=== PATIENT | female | born 1955 | race Caucasian/White ===

== ENCOUNTER 2019-12-01 08:39 | Emergency (ER) | payer MEDICARE, OTHER, BC, SELFPAY ==
[2019-12-01] VITALS (7 sets, daily range): BP systolic 134–149; BP diastolic 81–86; PULSE 82–102; RESP 18–20; TEMP 36.6; O2SAT 98–99
--- NOTE | 2019-12-01 08:45 | RT.EKG_ITS ---
APPROVED REPORT Exam: Resting ECG Patient Location: E HR:92 bpm ECG Measurements Heart Rate 92 AXIS VT 138 P 68 QRSd 84 QRS 35 QT 358 T 49 QTc 445 <Conclusion> Sinus rhythmrate 92, qrs narrow, no st elev
--- NOTE | 2019-12-01 09:00 | DI.CT_ITS ---
EXAM: CT BRAIN NECK CTA CLINICAL HISTORY: vertigo, vomiting. TECHNIQUE: Imaging Protocol: Axial CT angiography was performed with multi-slice acquisition and mu lti-planar and/or 3D reconstructions. CONTRAST MATERIAL: Intravenous: Omnipaque 350 Contrast volume:structured data in ml COMPARISON: No exams were available for comparison FINDINGS: CT angiography of the cervical cranial region was performed according to the usual protocol. Visualiz ed lung apices are clear. Visualized portions of thoracic aorta and pulmonary arterial circulation ar e unremarkable. There is no evidence of a cervical mass or adenopathy. The tracheal laryngeal structu res appear intact. The common, internal, and external carotid arteries are within normal limits in the cervical region w ith no evidence of aneurysm, stenosis, or dissection. The vertebral arteries are unremarkable in appearance in the cervical region with no evidence of aneu rysm, stenosis, or dissection. There is possible 3-4 millimeter in diameter medially directed aneurysm of the suprasellar portion th e right internal carotid artery. This is not ideally visualized. No other abnormality of the intrac ranial internal carotid arteries is seen.. Intracranial vertebral arteries and basilar artery appear normal with no evidence of aneurysm, stenos is or dissection. No aneurysm identified in the region of the [id number]. The anterior, middle, and posterior cer ebral arteries and major branches appear intact with no evidence of aneurysm, stenosis, or dissection . No enhancing brain lesion identified. 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 No other significant findings. Additional evaluation with catheter angiography s uggested. RADIATION DOSE DELIVERED: 1,158.16mGy.cmTotal DLP DATA REPOSITORY: All CT scans at this facility are submitted to the National Radiology Data Registry (NRDR) Dose Index Registry (DIR) with the [employer] (A[employer]). RADIATION OPTIMIZATION: All CT scans at this facility use at least one of these dose optimization te chniques: automated exposure control; mA and/or kV adjustment per patient size (includes targeted exa ms where dose is matched to clinical indication); or iterative reconstruction.
[2019-12-01] MEDS: Meclizine 25 MG TAB PO (09:14)
[2019-12-01] MEDS: Ondansetron 4 MG/2 ML VIAL IVP (09:15)
[2019-12-01] MEDS: Normal Saline Flush 10 ML SYR IVP ×2 (09:15→10:12)
[2019-12-01] MEDS: Normal Saline 1,000 ML 1000 ML IV (09:15)
[2019-12-01 09:18] LABS: Abs Immature Grans 0.06 10^3/uL (0.0-0.06); Absolute Basophil Count 0.02 10^3/uL (0.0-0.2); Absolute Lymphocyte Count 1.08 10^3/uL (1.2-3.4); Absolute Monocyte Count 0.51 10^3/uL (0.1-0.8); Absolute Neutrophil Count 8.81 10^3/uL (1.2-6.7); Basophils % 0.2; HCT 45.1 % (36.0-46.0); HGB 15.1 g/dL (11.2-15.7); Immature Grans % 0.6; Lymphocytes % 10.3; MCH 28.4 pg (27.0-33.0); MCHC 33.5 % (32.0-36.0); MCV 84.9 fL (80-95); MPV 9.1 fL (8.0-11.0); Monocytes % 4.9; Platelet Count 271 10^3/uL (130-400); RBC 5.31 10^6/uL (3.93-5.22); RDW 13.2 % (11.7-14.6); RDW-SD 40.8 fL; WBC 10.48 10^3/uL (4.4-10.8)
[2019-12-01] MEDS: Acetaminophen 500 MG TAB 1000 MG PO (09:32)
[2019-12-01 09:36] LABS: ALT 32 U/L (14-59); AST 18 U/L (15-37); Alkaline Phosphatase 83 U/L (46-116); Anion Gap 11.1 mmol/L (3-11); BUN 13 mg/dL (7-18); Bilirubin, Total 0.6 mg/dL (0.2-1.0); CO2 27.9 mmol/L (21.0-32.0); CREATININE 0.87 mg/dL (0.55-1.02); Calcium 9.5 mg/dL (8.5-10.1); Chloride 100 mmol/L (98-107); Glucose 136 mg/dL (74-106); Magnesium 1.9 mg/dL (1.8-2.4); Potassium 4.1 mmol/L (3.5-5.1); Sodium 139 mmol/L (136-145); Total Protein 7.9 g/dL (6.4-8.2)
--- NOTE | 2019-12-01 09:53 | W.ED.GENAD ---
Discharge Plan Disposition Patient Disposition: HOME Condition: Improving Discharge Details Chief Complaint: Dizzy/Sync Clinical Impression: Peripheral vertigo Primary Care Provider: Unknown,Unknown ED Provider: David Briones Home Meds and New Rx's Prescriptions: New meclizine 25 mg tablet 25 mg PO TID PRNQty: 20 RF: 0 Continued methenamine mandelate 0.5 g Tablet 0.5 g PO DAILY RF: 0 pravastatin 20 mg Tablet 20 mg PO QHS RF: 0 calcium carbonate-vitamin D3 [Calcium 500 + D] 500 mg(1,250mg) -200 unit Tablet 1 tab PO DAILY RF: 0 Discontinued zolmitriptan [Zomig] 5 mg Tablet 5 mg PO ONCE PRNRF: 0 Discharge Instructions Additional Instructions: As we discussed we will refer you to urology for outpatient consultation. Please stop your Zomig. May use meclizine as prescribed, as needed for nausea. Sleep with head of bed elevated 3 pillows. Liberally hydrate with small, frequent sips of fluids. Return or seek immediate care if you develop severe headache, vomiting, or any other acute concerns. Medical Decision Making 64-year-old female presents from home complaining of a day and a half of vertiginous spinning sensation that is worse with movement of her head and associated with vomiting. States she had a similar episode 2 weeks ago. She is only had a very mild headache if any. No fever or chills, no neck pain. No trauma or falls. Her vital signs are unremarkable, neurologic exam is without focal deficits. Broad differential diagnosis considered. Would consider peripheral vertigo, must exclude central source of her symptoms. IV placed, labs obtained, patient given acetaminophen for achy left shoulder pain. Screening EKG performed and unremarkable. Patient referred for chest x-ray, CT of brain and neck. Laboratories: White count 10, medic at 45, platelets 271. Chemistries unremarkable, troponin negative. 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 Images uploaded and the case discussed with Dr. Saul of [facility] neurosurgery. This small aneurysm will require surveillance. We will have her discontinue her triptan. 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 Patient improved following meclizine. Tolerating liquids and solids by mouth. HPI General Mode of arrival: ambulatory. Date/Time Provider Initiated Documentation: 12/01/19 08:42. Limitations to Documentation: no limitations. Information obtained by: patient. History of Present Illness 64 year old F presents to the emergency department with the chief complaint of Dizziness and vomiting, described as moderate and similar to prior episodes, Quality is described as constant, and is localized to the head. Patient started experiencing this hour(s) and it has been intermittent. Rest improves symptom(s), Movement worsens symptoms . Patient notes loss of appetite and nausea/vomiting; denies chest pain, fever/chills, shortness of breath, syncope and weakness. Patient did receive the following treatments prior to arrival, none Related Data Home Medications Medication Instructions Recorded Confirmed calcium carbonate-vitamin D3 1 tab PO DAILY 12/01/19 12/01/19 [Calcium 500 + D] meclizine 25 mg PO TID PRN #20 tab 12/01/19 methenamine mandelate 0.5 g PO DAILY 12/01/19 12/01/19 pravastatin 20 mg PO QHS 12/01/19 12/01/19 Previous Rx's Medication Instructions Recorded meclizine 25 mg PO TID PRN #20 tab 12/01/19 Allergies Allergy/AdvReac Type Severity Reaction Status Date / Time amoxicillin Allergy Skin Rash Unverified 12/01/19 08:51 General Stated Complaint: Dizzy/Sync BROOK: 3 Review of Systems Narrative: 6 systems reviewed and otherwise negative. Mild headache, no trauma, no accidents. No neck pain. Mild left achy shoulder pain [facility] Social History Smoking/Tobacco Use Status: Never Alcohol Intake: current Alcohol Intake frequency: a few times a week Alcohol type: wine Drug use: Never Substance use type: does not use Do you feel safe at home: Yes Do you feel safe in your relationship?: Yes Exam Narrative Exam Narrative: GEN: awake, alert, oriented 3. Pleasant, well groomed, interactive. HEAD: Normocephalic, atraumatic ENT: Mucous membranes moist, oropharynx unremarkable, External ear exam unremarkable EYES: PERRL, EOMI, 2 beat horizontal nystagmus both left and right NECK: Full ROM, no DARLIN, no menigismus CHEST/RESP: Nontender, clear to auscultation bilateral, no wheeze/rhonchi/rales CARDIOVASCULAR: RRR, no murmur, rub martir. 2+ Rad pulse bilateral ABDOMEN: Soft, nontender, no mass. +Bowel sounds EXT: Full ROM, no edema, no rash Neuro: Grossly normal neurologic exam, conversant, interactive. Cranial nerves II through XII intact. [id number] intact. Visual colon intact to confrontation Psych: Speech fluent, thoughts congruent, affect normal Course Vital Signs Vital signs: Vital Signs Temperature 36.6 C 12/01/19 08:46 Pulse 102 H 12/01/19 08:46 Respiratory Rate 20 12/01/19 08:46 Blood Pressure 134/86 12/01/19 08:46 Pulse Oximetry 99 12/01/19 08:46 Temperature 36.6 C 12/01/19 08:46 Temperature Source Skin 12/01/19 08:46 Pulse 102 H 12/01/19 08:46 Pulse 91 H 12/01/19 09:30 Respiratory Rate 18 12/01/19 09:17 Respiratory Effort Non-Labored 12/01/19 09:17 Respiratory Depth Normal 12/01/19 09:17 Respiratory Pattern Normal 12/01/19 09:17 Blood Pressure 134/86 12/01/19 08:46 Blood Pressure Position Sitting 12/01/19 08:46 Pulse Oximetry 99 12/01/19 08:46 Oxygen Delivery Method Room Air 12/01/19 08:46 Oxygen Flow Rate 0 12/01/19 08:46 Pain Level 3 12/01/19 09:32 Lab/Test Results Lab/Test Results: Laboratory Tests Range/Units 12/01/19 09:12 WBC (4.4-10.8) 10^3/uL 10.48 RBC (3.93-5.22) 10^6/uL 5.31 H Hgb (11.2-15.7) g/dL 15.1 Hct (36.0-46.0) % 45.1 MCV (80-95) fL 84.9 MCH (27.0-33.0) pg 28.4 MCHC (32.0-36.0) % 33.5 RDW (11.7-14.6) % 13.2 Plt Count (130-400) 10^3/uL 271 MPV (8.0-11.0) fL 9.1 Immature Gran % 0.6 Neutrophils % 84.0 Lymphocytes % 10.3 Monocytes % 4.9 Eosinophils % 0.0 Basophils % 0.2 Absolute Neutrophils (1.2-6.7) 10^3/uL 8.81 H Absolute Lymphocytes (1.2-3.4) 10^3/uL 1.08 L Absolute Monocytes (0.1-0.8) 10^3/uL 0.51 Absolute Eosinophils (0.0-0.7) 10^3/uL 0.00 Absolute Basophils (0.0-0.2) 10^3/uL 0.02
[2019-12-01] MEDS: Normal Saline - Diluent 50 ML VIAL IV (10:11)
[2019-12-01] MEDS: Omnipaque 350 MG/ML 100 ML BTL IJ (10:11)
[2019-12-01 10:27] LABS: Troponin I < 0.05 ng/mL (<0.06)
--- NOTE | 2019-12-01 10:30 | DI.RAD_ITS ---
EXAM: XR CHEST 2V PA LATERAL CLINICAL HISTORY: dizziness, L shoulder pain TECHNIQUE: 2D digital imaging was performed. COMPARISON: No exams were available for comparison FINDINGS: The heart is not enlarged. The lungs are clear and well expanded. No pleural effusion seen. Mediastin al contours appear intact. IMPRESSION: Normal chest
--- NOTE | 2019-12-01 10:44 | DI.VRAD_ITS ---
PROCEDURE INFORMATION: Exam: CT Angiography Head Without And With Contrast Exam date and time: 12/01/2019 9:02 AM Age: 64 years old Clinical indication: Vertigo and Vomiting TECHNIQUE: Imaging protocol: Computed tomographic angiography of the head without and with intravenous contrast. 3D rendering: MIP and/or 3D reconstructed images were created by the technologist. Radiation optimization: All CT scans at this facility use at least one of these dose optimization techniques: automated exposure control; mA and/or kV adjustment per patient size (includes targeted exams where dose is matched to clinical indication); or iterative reconstruction. Contrast material: OMNIPAQUE 350; Contrast volume: 100 ml; Contrast route: INTRAVENOUS (IV); COMPARISON: No relevant prior studies available. 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 Right middle cerebral artery: Unremarkable. No occlusion or significant stenosis. No aneurysm. Right anterior cerebral artery: Unremarkable. No occlusion or significant stenosis. No aneurysm. Left internal carotid artery: Unremarkable. Intracranial segment is patent with no significant stenosis. No aneurysm. Left middle cerebral artery: Unremarkable. No occlusion or significant stenosis. No aneurysm. Left anterior cerebral artery: Unremarkable. No occlusion or significant stenosis. No aneurysm. POSTERIOR CIRCULATION: Right vertebral artery: Unremarkable. No occlusion or significant stenosis. No aneurysm. Left vertebral artery: Unremarkable. No occlusion or significant stenosis. No aneurysm. Basilar artery: Unremarkable. No occlusion or significant stenosis. No aneurysm. Right posterior cerebral artery: Unremarkable. No occlusion or significant stenosis. No aneurysm. Left posterior cerebral artery: Unremarkable. No occlusion or significant stenosis. No aneurysm. Brain: Age-related involutional changes and chronic microvascular ischemic disease. No evidence for acute transcortical infarct. No mass effect or midline shift. No extra-axial collection. No acute intracranial hemorrhage. Basal cisterns are patent. IMPRESSION: No evidence for acute transcortical infarct, acute intracranial hemorrhage, or mass effect. No stenosis. 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 The findings were verbally communicated via telephone conference with DANTE JACKSON at 10:40 AM EDT on 12/01/2019. The findings were acknowledged and understood. PROCEDURE INFORMATION: Exam: CT Angiography Neck With Contrast Exam date and time: 12/01/2019 9:02 AM Age: 64 years old Clinical indication: Vertigo and Vomiting TECHNIQUE: Imaging protocol: Computed tomography angiography of the neck with intravenous contrast. 3D rendering: MIP and/or 3D reconstructed images were created by the technologist. Radiation optimization: All CT scans at this facility use at least one of these dose optimization techniques: automated exposure control; mA and/or kV adjustment per patient size (includes targeted exams where dose is matched to clinical indication); or iterative reconstruction. COMPARISON: No relevant prior studies available. FINDINGS: Right common carotid artery: No stenosis. No dissection or occlusion. Right internal carotid artery: No stenosis of the extracranial segment. No dissection or occlusion. Right external carotid artery: No occlusion or stenosis of the origin. Right vertebral artery: No stenosis. No dissection or occlusion. Left common carotid artery: No stenosis. No dissection or occlusion. Left internal carotid artery: No stenosis of the extracranial segment. No dissection or occlusion. Left external carotid artery: No occlusion or stenosis of the origin. Left vertebral artery: No stenosis. No dissection or occlusion. Thyroid: Benign appearing small hypodense nodule in the right thyroid lobe. Bones/joints: No acute fracture. Soft tissues: Normal. No significant soft tissue swelling. IMPRESSION: No significant stenosis. No evidence of acute dissection. REFERENCES: NASCET CRITERIA. The degree of internal carotid artery stenosis is based on NASCET criteria. Normal is no stenosis. Mild is less than 50% stenosis. Moderate is 50-69% stenosis. Severe is 70% to 99% stenosis. Total occlusion is no detectable patent lumen. Dictated and Authenticated by: Dl Matias MD. Ordering:BRENNAN Hernandez MD
--- NOTE | 2019-12-01 11:00 | DI.VRAD_ITS ---
PROCEDURE INFORMATION: Exam: XR Chest, 2 Views Exam date and time: 12/01/2019 10:29 AM Age: 64 years old Clinical indication: Stiffness, left shoulder pain TECHNIQUE: Imaging protocol: XR of the chest Views: 2 views. COMPARISON: No relevant prior studies available. FINDINGS: Lungs: Clear lungs. Pleural space: No pneumothorax. No sizable pleural effusion. Heart/Mediastinum: No cardiomegaly. Bones/joints: Degenerative changes of the bilateral acromioclavicular joints. IMPRESSION: Clear lungs. Dictated and Authenticated by: Dl Matias MD. Ordering:BRENNAN Hernandez MD
--- NOTE | 2019-12-01 11:45 | NUR.NOTE ---
Referral faxed to Neurology Dr. Arnett, also copy to care management to establish pcp.Nursing Note:
--- NOTE | 2019-12-02 11:54 | PDOC.ERCMPRO ---
- If Service Date Differs Date of service: 12/02/19 Time of Service: 11:54 Care Management Progress Note At the request of ED provider, HILDA coordinates a referral to Juliana Blackmon DO, oncall teledoc, [facility], to assist patient in establishing care with PCP. A referral has already been faxed to [facility] neurology by the ED.
== END 2019-12-01 12:08 | disposition home or self-care (01) ==
PROVIDERS: Emergency Provider Emergency Medicine
DX: H81.399 Other peripheral vertigo, unspecified ear (principal); R11.2 Nausea with vomiting, unspecified; I67.1 Cerebral aneurysm, nonruptured
CPT/HCPCS: 36415; 70496; 70498; 80053; 93005; 96361; 96374; 99285; 71046; 83735; 84484; 85025; 93010; J2405; J3490

== ENCOUNTER 2023-12-14 10:04 | Outpatient (CLI) | payer MEDICARE, BC, SELFPAY ==
--- NOTE | 2023-12-14 08:50 | DI.RAD_ITS ---
Exam(s) XR KNEE RT 4V AP,LAT,TOR,PAT EXAM: XR KNEE RT 4V AP,LAT,TOR,PAT CLINICAL HISTORY: right knee pain. TECHNIQUE: 2D digital imaging was performed of the right knee. Four views obtained. Merchant, AP, la teral and PA tunnel views were obtained. COMPARISON: No priors for comparison. FINDINGS: BONES: No acute fracture is present. No bony destructive lesion is seen. JOINTS: The knee is normally aligned. There is a small joint effusion. No loose body is seen. SOFT TISSUE: Normal. IMPRESSION: Small joint effusion. DATA REPOSITORY: RADIATION DOSE DELIVERED:
== END 2023-12-14 10:05 | disposition home or self-care (01) ==
LOC: DIORS 10:05
PROVIDERS: PCP Preventive Medicine Public Health & General Preventive Medicine; Referring Provider Preventive Medicine Public Health & General Preventive Medicine; Visit Provider Physician Assistant
DX: M17.11 Unilateral primary osteoarthritis, right knee
CPT/HCPCS: 99203; 73564

== ENCOUNTER 2024-01-05 09:06 | Outpatient (CLI) | payer MEDICARE, BC, SELFPAY ==
--- NOTE | 2024-01-05 09:00 | DI.RAD_ITS ---
Exam(s) XR HIP RT COMPLETE AP PELVIS EXAM: XR HIP RT COMPLETE AP PELVIS CLINICAL HISTORY: right hip pain. TECHNIQUE: 2D digital imaging was performed of the right hip. Two images were obtained. AP pelvis a nd lateral right hip views were obtained. COMPARISON: No exams were available for comparison FINDINGS: BONES: No acute fracture is present. No bony destructive lesion is seen. Enthesophyte is seen at the greater trochanter. JOINTS: No dislocation present. The right hip is well maintained. SOFT TISSUE: Normal. IMPRESSION: The right hip joint is well maintained. No acute fracture or dislocation. DATA REPOSITORY: RADIATION DOSE DELIVERED:
== END 2024-01-05 09:07 | disposition home or self-care (01) ==
LOC: DIORS 09:07
PROVIDERS: PCP Preventive Medicine Public Health & General Preventive Medicine; Referring Provider Preventive Medicine Public Health & General Preventive Medicine; Visit Provider Physician Assistant
DX: M23.91 Unspecified internal derangement of right knee
CPT/HCPCS: 99213; 73502

== ENCOUNTER 2024-01-15 09:07 | Outpatient (CLI) | payer MEDICARE, BC, SELFPAY ==
--- NOTE | 2024-01-15 09:00 | DI.MRI_ITS ---
Exam(s) MR LOWER JOINT RT WO EXAM: MR LOWER JOINT RT WO CLINICAL HISTORY: R KNEE PAIN, OA of RT knee, M17.11 TECHNIQUE: Multiplanar multisequence MRI of the knee was performed. COMPARISON: CR XR KNEE RT 4V AP,LAT,TOR,PAT from 12/14/2023 FINDINGS: EFFUSION: There is a small moderate size knee joint effusion. There is a Crane cyst in the medial po pliteal fossa which approximately 8 cm in length by 1 cm wide by 0.8 cm AP. This appears to be proba matt ruptured as there is fluid extending down the surface of the medial gastrocnemius muscle. No loose intra-articular bodies evident. MARROW:There is no evidence of fracture, bone contusion, nor osteochondral defects.. There is a dege nerative subarticular cyst seen in the posterior aspect of the tibial plateau measuring 5 x 5 mm. PATELLOFEMORAL COMPARTMENT: The quadriceps tendon is intact. The patellar ligament is intact. Some edema is noted anterior to the lower patellar ligament but no tear of this structure. There is moderate thinning of the retropatellar cartilage over the mid facet level and there is very subtle subarticular edema in the posterior aspect of the patella just above the midline at this level . There is no osteochondral defect at this level.There is no intraosseous signal to suggest recent p atellar dislocation. There are no patellar retinacular tears. CRUCIATE LIGAMENTS: The anterior cruciate ligament is intact.The posterior cruciate ligament is intac t. MEDIAL COMPARTMENT/MEDIAL MENISCUS: There is complex tear of the posterior horn of the medial meniscu s evident which exhibits both oblique and horizontal components. Also some signal abnormality in the region of the root of the posterior horn. Anterior horn of the medial meniscus appears intact but w ith mild extrusion. There is minimal articular cartilage thinning in the medial compartment. No large chondral defects n or osteochondral defects nor subarticular edema in the femoral condyle and medial tibial plateau. No marginal osteophytes evident. MEDIAL COLLATERAL LIGAMENT: Intact LATERAL COMPARTMENT/LATERAL MENISCUS: There is no evidence of lateral meniscal tear.There are no charles dral defects, osteochondral defects, subarticular marrow edema, nor osteophytes evident. ILIOTIBIAL BAND: Intact LATERAL COLLATERAL LIGAMENT COMPLEX: The fibular collateral ligament is intact. The biceps femoris t endon is intact.Popliteus muscle and tendon are intact. IMPRESSION: 1. There is complex tear of the posterior horn of the medial meniscus as described above. Anterior h orn appears intact. There are only mild degenerative osteoarthritic changes in the medial compartmen t. Lateral compartment and lateral meniscus appear unremarkable. 2. There is moderate thinning of the retropatellar cartilage over the mid facet level with small focu s of subarticular edema in the posterior patella but no osteochondral defects evident. 3. There are no cruciate nor collateral ligament tears. 4. Moderate size joint effusion. There is also a Crane cyst in the medial popliteal fossa which bethany ures approximately 8 cm length but exhibits an element of rupture with fluid leaking down the medial gastrocnemius surface DATA REPOSITORY:
== END 2024-01-15 09:27 ==
LOC: DI 09:09
PROVIDERS: PCP Preventive Medicine Public Health & General Preventive Medicine; Visit Provider Student in an Organized Health Care Education/Training Program
DX: M17.11 Unilateral primary osteoarthritis, right knee (principal)
CPT/HCPCS: 73721

== ENCOUNTER → 2024-01-23 13:23 | Outpatient (BNVA) | payer MEDICARE, BC, SELFPAY | PROVIDERS: PCP Preventive Medicine Public Health & General Preventive Medicine; Referring Provider Preventive Medicine Public Health & General Preventive Medicine | DX: M23.91 Unspecified internal derangement of right knee (principal); S83.241D Other tear of medial meniscus, current injury, right knee, subsequent encounter; S83.281D Other tear of lateral meniscus, current injury, right knee, subsequent encounter; X58.XXXD Exposure to other specified factors, subsequent encounter | CPT/HCPCS: 99213 ==

== ENCOUNTER → 2024-02-05 08:32 | Outpatient (BNVA) | payer MEDICARE, BC, SELFPAY | PROVIDERS: PCP Preventive Medicine Public Health & General Preventive Medicine; Referring Provider Preventive Medicine Public Health & General Preventive Medicine; Visit Provider Student in an Organized Health Care Education/Training Program | DX: M17.11 Unilateral primary osteoarthritis, right knee (principal); S83.241A Other tear of medial meniscus, current injury, right knee, initial encounter; X58.XXXA Exposure to other specified factors, initial encounter | CPT/HCPCS: 20610; J1010 ==

== ENCOUNTER 2025-03-05 13:20 | Outpatient (CLI) | payer MEDICARE, BC, SELFPAY ==
--- NOTE | 2025-03-05 13:00 | DI.RAD_ITS ---
Exam(s) XR SHOULDER LT COMPLETE 2+V EXAM: XR SHOULDER LT COMPLETE 2+V CLINICAL HISTORY: LEFT SHOULDER PAIN. TECHNIQUE: 2D digital imaging was performed of the left shoulder. Four images were obtained. Axillary and Grashey views were obtained. COMPARISON: No exams were available for comparison FINDINGS: BONES: No acute fracture is present. No bony destructive lesion is seen. JOINTS: No dislocation present. There are mild degenerative changes seen at the acromioclavicular joint. The glenohumeral joint appears well maintained. SOFT TISSUE: Normal. IMPRESSION: Mild degenerative changes of the left shoulder. DATA REPOSITORY: RADIATION DOSE DELIVERED:
== END 2025-03-05 13:21 | disposition home or self-care (01) ==
LOC: DIORS 13:20
PROVIDERS: PCP Preventive Medicine Public Health & General Preventive Medicine; Referring Provider Preventive Medicine Public Health & General Preventive Medicine; Visit Provider Student in an Organized Health Care Education/Training Program
DX: M75.82 Other shoulder lesions, left shoulder (principal); M25.812 Other specified joint disorders, left shoulder; M75.52 Bursitis of left shoulder; M25.512 Pain in left shoulder
CPT/HCPCS: 99213; 73030